=== PATIENT | female | born 1950 | race American Indian/Alaskan Native ===

== ENCOUNTER 2018-11-11 12:03 | Day surgery (SDC) | payer MEDICARE ==
[2018-11-11] MEDS ORDERED: DIPRIVAN 10 MG/ML IV ONE (12:46)
[2018-11-11] MEDS ORDERED: XYLOCAINE MPF 2% ONE (12:46)
[2018-11-11] MEDS ORDERED: SUBLIMAZE ONE (12:46)
[2018-11-11] MEDS ORDERED: DILAUDID IV PRN (12:50)
[2018-11-11] MEDS ORDERED: ZOFRAN IV PRN (12:50)
--- NOTE | 2018-11-11 12:50 | Anesthesia Consultation ---
Anesthesia Consult and Med Hx - Airway Anesthetic Teeth Evaluation: Bridges Partials Mallampati Class: Class II Intubation Access Assessment: Good - Pulmonary Exam CTA: Yes - Cardiac Exam Cardiac Exam: RRR - Pre-Operative Health Status ASA Pre-Surgery Classification: ASA1 Proposed Anesthetic Plan: General - Pulmonary Hx Smoking: Yes (1/2 PPD X 45 YRS) Hx Sleep Apnea: No (MARLIN PRE SCREEN LOW RISK.) - Cardiovascular System Hx Hypertension: No - Central Nervous System Hx Back Pain: Yes (FROM STONE) - Other Systems Hx Cancer: No
--- NOTE | 2018-11-11 12:50 | Anesthesia Day of Surgery ---
Anesthesia Day of Surgery - Day of Surgery Patient Examined: Yes Patient H&P Reviewed: Yes Patient is NPO: Yes
[2018-11-11] MEDS ORDERED: LACTATED RINGERS 1,000 ML IV SCH (13:28)
[2018-11-11] MEDS ORDERED: VERSED IV ONE (13:28)
[2018-11-11] MEDS ORDERED: ANCEF/STERILE WATER 2 GM/20 ML IV NR (14:00)
[2018-11-11] MEDS ORDERED: DECADRON ONE (14:05)
[2018-11-11] MEDS ORDERED: ROBINUL ONE (14:05)
[2018-11-11] MEDS ORDERED: ZOFRAN ONE (14:31)
[2018-11-11] MEDS ORDERED: WATER FOR IRRIG STERILE IR ONE (14:48)
--- NOTE | 2018-11-11 15:14 | Short Stay Summary ---
Short Stay Documentation Date of service: 11/11/18 - History H&P: obtained from office - Allergies and Medications Current Medications: Allergies No Known Allergies Allergy (Verified 11/04/18 13:45) Home Medications Medication Instructions Recorded Confirmed Last Taken Type Ketorolac [Toradol] 10 mg PO Q4HR PRN 11/04/18 11/04/18 Unknown History Ondansetron [Zofran TAB] 4 mg PO Q8HR PRN 11/04/18 11/04/18 Unknown History cefUROXime [Ceftin] 500 mg PO Q12H 11/04/18 11/04/18 Unknown History Active Medications Cefazolin Sodium (Ancef/Sterile Water 2 Gm/20 Ml) 2 gm IV PREOP NR Stop: 11/11/18 23:59 Hydromorphone HCl (Dilaudid) 0.5 mg IV Q10MIN PRN PRN Reason: Pain , Severe (7-10) Stop: 11/11/18 23:59 Lactated Ringer's (Lactated Ringers) 1,000 mls @ 100 mls/hr IV DIRECT ELLIOT Last Admin: 11/11/18 13:40 Dose: 100 mls/hr Documented by: Ondansetron HCl (Zofran) 4 mg IV ONCE PRN PRN Reason: Nausea And Vomiting - Brief post op/procedure progress note Date of procedure: 11/11/18 Pre-op diagnosis: left uret stone, francheska renal Post-op diagnosis: same Procedure: cysto, francheska rpg left urs, left stent 6x26 Findings: No renal or ureteral stone; good look at ureter and entire pelvis / calyces Surgeon: VAN CARLOS Estimated blood loss: minimal Pathology: none Condition: stable - Hospital course Hospital course: orpacuhome - Disposition Condition at discharge: Good Disposition: DC-01 TO HOME OR SELFCARE Short Stay Discharge Plan Activity: advance as tolerated Diet: advance as tolerated Follow up with: VAN CARLOS MD [Staff Physician] - 7 Days
[2018-11-11 16:09] VITALS: BP 151/79
--- NOTE | 2018-11-13 08:05 | Fluoroscopy Report ---
FLUOROSCOPY RETROGRADE UROGRAPHY: FLUOROSCOPY URETER/NEPHROSTOMY DILATATION LEFT: HISTORY: Left ureteral stone. FINDINGS: Fluoroscopy was provided by radiology during retrograde urography by the urologist. 13 fluoroscopic images were captured. There is adequate filling of the ureters and intrarenal collecting systems with no filling defects or anatomic abnormalities identified. Balloon dilatation of the distal left ureter was performed per the operative note. Please correlate with the procedural report if needed. IMPRESSION: Left ureteral stent placement as described.
--- NOTE | 2018-12-02 11:16 | Event Note ---
Date: 12/02/18 Op Note: [id number]
--- NOTE | 2018-12-02 12:46 | Operative Report ---
PREOPERATIVE DIAGNOSIS: Left ureteral stone, bilateral renal stones. POSTOPERATIVE DIAGNOSIS: Left ureteral stone, bilateral renal stones. PROCEDURE: Cystoscopy, bilateral RPG, left ureteroscopy, left stent placement 6 x 26, staged for future removal. FINDINGS: No renal or ureteral stone. Good look at ureter and entire pelvis and calices. SURGEON: Endy Ramachandran M.D. ANESTHESIA: General. SPECIMENS: None. ESTIMATED BLOOD LOSS: Minimal. CONDITION: Stable. CLINICAL INDICATIONS: The patient counseled on RCBA, antibiotics, SCD's. The patient with less pain, but still before procedure was stating having some pain on the left side. DESCRIPTION OF PROCEDURE: The patient transferred to OR suite in supine position, anesthesia, dorsal lithotomy, prepped and draped in standard fashion. A 22-[place] scope passed. Pancystoscopy 30 and 70 degree lens, no tumors. Right retrograde pyelogram within normal limits, no tumors, lesions, or filling defects. With 8-[place] cone-tipped catheter repeated on the left side, limited, difficult to see, was unclear with possible may be some dilation, but no clear filling defect. Glidewire passed up to the left renal pelvis. Next, rigid ureteroscope cannulated the left ureteral orifice, passed up from the distal ureter up to the proximal ureter. No stone identified. A wire was passed. Flexible ureteroscope was passed up the ureter. No stones identified in the left distal ureter, proximal ureter, renal pelvis calices. No filling defects, no abnormality. We had a fairly good look at all the calyces, renal pelvis, and ureter and definitively no obvious visible stone. At this point, the scope was slowly withdrawn. Wire backloaded on the cystoscope. A 6 x 26 double-J stent was passed over the wire under direct and fluoroscopic visualization. When the wire and string was removed, there was nice proximal J, nice distal J in the bladder, bladder drained. The patient awakened and transferred to PACU in good and stable condition. JOB# [id number] ATS/NTS
== END 2018-11-11 12:04 | disposition home or self-care (01) ==
LOC: OR 12:03
PROVIDERS: ATTEND Urology
DX: N20.2 Calculus of kidney with calculus of ureter (principal); F17.210 Nicotine dependence, cigarettes, uncomplicated; Z98.49 Cataract extraction status, unspecified eye; Z98.51 Tubal ligation status; Z79.899 Other long term (current) drug therapy; Z98.890 Other specified postprocedural states
CPT/HCPCS: 52332; 52351; 74420; 74485; A4217; C1726; C1758; C1769; C2617; J1100; J2250; J2405; J2704; J3010; J7120; Q9967